=== PATIENT | male | born 1975 | race Two or more races ===

== ENCOUNTER 2017-05-03 22:52 | Emergency (ER) | payer SELFPAY ==
[2017-05-03 23:01] VITALS: BP 135/87; PULSE 79; TEMP 98.2; BMI 29.4
[2017-05-04] MEDS ORDERED: CLINDAMYCIN HCL 300 MG CAPSULE PO ONE (00:18)
--- NOTE | 2017-05-04 00:24 | PDOC ---
History of Present Illness - General Chief Complaint: Toothache Stated Complaint: TOOTHACHE Time Seen by Provider: 05/03/17 23:36 History Source: Patient, Family, [employer] Used Exam Limitations: Language Barrier - History of Present Illness Initial Comments: 05/04/17 00:19 41yo Male patient with no significant past medical history recently traveled from [facility] presents to ED with 2 day history of dental pain. Patient states symptoms began back in [place] and patient prescribed Cipro and Ibuprofen approximately 5 days ago. He states swelling has gone down a little, but infection persist. No local dentist. Denies fever, throat pain, or trouble swallowing. Past History - Travel Traveled outside of the country in the last 30 days: Yes If so, where?: [facility] Close contact w/someone who was outside of country & ill: No - Past Medical History Allergies/Adverse Reactions: Allergies Allergy/AdvReac Type Severity Reaction Status Date / Time No Known Allergies Allergy Verified 05/03/17 23:01 Home Medications: Ambulatory Orders Clindamycin [Cleocin -] 300 mg PO Q8H #30 capsule 05/04/17 Ibuprofen 800 mg PO Q6H PRN #15 tablet 05/04/17 Other medical history: denies - Psycho/Social/Smoking Cessation Hx Suicidal Ideation: No Smoking History: Never smoked Review of Systems - Review of Systems Able to Perform ROS?: Yes Is the patient limited [place] proficient: No HEENTM: Yes: Dental Problems All Other Systems: Reviewed and Negative *Physical Exam - Vital Signs Last Vital Signs Temp Pulse Resp BP Pulse Ox 98.2 F 79 18 135/87 99 05/03/17 22:58 05/03/17 22:58 05/03/17 22:58 05/03/17 22:58 05/03/17 22:58 - Physical Exam General Appearance: Yes: Nourished, Appropriately Dressed. No: Apparent Distress, Mild Distress, Moderate Distress, Severe Distress HEENT: positive: EOMI, YEN, Normal ENT Inspection, Normal Voice, Symmetrical, TMs Normal, Pharynx Normal, Other (Small abscess to upper gum line above front teeth. mild erythema, no inflammation, drainage noted.). negative: Pharyngeal Erythema, Tonsillar Exudate, Tonsillar Erythema, Nasal Congestion, Rhinorrhea, Sinus Tenderness, TM Bulging, TM Dull, TM Erythema Neck: positive: Trachea midline, Supple. negative: Rigid, Stridor, Lymphadenopathy (R), Lymphadenopathy (L) Respiratory/Chest: positive: Lungs Clear, Normal Breath Sounds. negative: Chest Tender, Respiratory Distress, Accessory Muscle Use, Labored Respiration, Rapid RR Cardiovascular: positive: Regular Rhythm, Regular Rate Gastrointestinal/Abdominal: positive: Normal Bowel Sounds, Soft. negative: Distended, Guarding, Rebound, Tenderness, Hernia, Mass Musculoskeletal: positive: Normal Inspection. negative: CVA Tenderness Extremity: positive: Normal Capillary Refill, Normal Inspection, Normal Range of Motion. negative: Pedal Edema, Swelling, Calf Tenderness, Erythema, Inflammation Integumentary: positive: Normal Color, Dry, Warm. negative: Erythema, Hives, Rash, Swelling Neurologic: positive: ski maker II-XII NML intact, Fully Oriented, Alert, Normal Mood/ Affect, Normal Response, Motor Strength 5/5 *DC/Admit/Observation/Transfer Diagnosis at time of Disposition: Gingival abscess, Toothache - Discharge Dispostion Disposition: HOME Condition at time of disposition: Stable Admit: No - Prescriptions Prescriptions: Clindamycin [Cleocin -] 300 mg PO Q8H #30 capsule Ibuprofen 800 mg PO Q6H PRN #15 tablet PRN Reason: Pain - Patient Instructions Printed Discharge Instructions: DI for Tooth Abscess, DI for Dental Pain Additional Instructions: SEGUIMIENTO CON UN DENTISTA LOCAL SI ES POSIBLE. TOME LOS MEDICAMENTOS ELIZABETH SE PRESCRIBAN AUNQUE SNTOMAS MEJOREN. LA INFECCIN PUEDE VOLVER. MOTRIN O TYLENOL PARA EL DOLOR ELIZABETH SEA NECESARIO. ENJUAGUE LA BOCA CON AGUA SALIDA CALIENTE DOS VECES DIARIAMENTE. CEPILLO DE DIENTES CON CEPILLO DE DENTAS SUAVE. RETURN si los sntomas empeoran O CUALQUIER PREOCUPACIN para jem evaluacin adicional. FOLLOW UP WITH A LOCAL DENTIST IF POSSIBLE. TAKE MEDICATIONS PRESCRIBED EVEN IF SYMPTOMS GET BETTER. INFECTION CAN RETURN. MOTRIN OR TYLENOL FOR PAIN NEEDED. RINSE MOUTH WITH WARM SALT WATER TWICE DAILY. BRUSH TEETH WITH SOFT BRISTLE TOOTHBRUSH. RETURN IF SYMPTOMS WORSEN OR ANY CONCERNS FOR FURTHER EVALUATION. Print Language: AMHARIC
[2017-05-04] MEDS ORDERED: CLINDAMYCIN HCL 150 MG CAPSULE (FP) ONE (00:36)
== END 2017-05-04 00:52 | disposition home or self-care (01) ==
LOC: JER 22:52
DX: K04.7 Periapical abscess without sinus (principal)
CPT/HCPCS: 99281-25